=== PATIENT | male | born 1965 | race African-American/Black ===

== ENCOUNTER 2018-03-18 14:48 | Emergency (ER) | payer MEDICARE, MEDICAID ==
[~2018-03-18 14:48] MED LIST: ISOVUE-370 76%-LOCM 1 ML ONE
[2018-03-18 15:17] LABS: #Eosinphils 0.4 thou/uL (0.0-0.7); #Lymphocytes 1.4 thou/uL (1.20-3.40); #Monocytes 0.7 thou/uL (0.11-0.59); #Neutrophils 4.3 thou/uL (1.40-6.50); %Basophils 0.5 % (0.0-1.0); %Eosinophils 5.2 % (0.0-10.0); %Lymphocytes 20.9 % (21.0-51.0); %Monocytes 10.4 % (0.0-10.0); Hemoglobin 12.3 g/dL (14.0-18.0); Mean Corpuscular Hemoglobin 27.2 pg (27.0-31.0); Mean Corpuscular Volume 77.9 fL (78.0-98.0); Mean Platelet Volume 6.7 fL (7.4-10.4); Platelet Count 397 thou/uL (130-400); RBC Distribution Width 12.9 % (11.5-14.5); Red Blood Cell (RBC) Count 4.51 mill/uL (4.70-6.10); White Blood Cell (WBC) Count 6.9 thou/uL (4.8-10.8)
--- NOTE | 2018-03-18 15:21 | RAD ---
SINGLE VIEW OF THE CHEST: COMPARISON: 05/15/2016. HISTORY: Chest pain. Decreased appetite for 2 days. FINDINGS: Two views of the chest show a normal-sized cardiomediastinal silhouette. There is a subtle opacity p rojecting over the right lower lobe which likely represents an infiltrate. No pleural effusion is se en. IMPRESSION: Right lower lobe pneumonia. POS: [facility]
[2018-03-18 15:37] LABS: ALT (SGPT) 43 U/L (8-55); AST (SGOT) 24 U/L (5-34); Albumin 3.6 g/dL (3.5-5.0); Alkaline Phosphatase 131 U/L (40-150); Anion Gap 15 mmol/L (10-20); BUN (Urea Nitrogen) 9 mg/dL (8.4-25.7); CK (CPK) 77 U/L (30-200); Calc. Creatinine Clearance 0 mL/min (70-130); Calcium 9.2 mg/dL (7.8-10.44); Carbon Dioxide 22 mmol/L (22-29); Chloride 102 mmol/L (98-107); Estimated GFR-MDRD 75; Globulin 3.6 g/dL (2.4-3.5); Glucose 107 mg/dL (70-105); Lipase 11 U/L (8-78); Potassium 3.6 mmol/L (3.5-5.1); Protein, Total 7.2 g/dL (6.0-8.3); Sodium 135 mmol/L (136-145)
[2018-03-18] MEDS ORDERED: cefTRIAXone\\ROCEPHIN 1 GM VIAL ONE (15:42)
[2018-03-18 16:39] LABS: Acetaminophen Less than 6.0 mcg/mL (10.0-30.0); Alcohol Less than 10 mg/dL (Less than 10); Salicylate Less than 8.0 mg/dL (15.0-30.0)
--- NOTE | 2018-03-18 18:06 | CT ---
CT ANGIOGRAM CHEST WITH CONTRAST: History: Chest pain. Comparison: Radiograph same day. FINDINGS: CT angiogram chest performed after the intravenous administration of contrast. 3D rendering provided. There is extensive mediastinal adenopathy. Largest right paratracheal lymph node measures 3.5 cm in short axis. Large subcarinal lymph node measures 2.5 cm, axial image 49. The right paratracheal lymph node on axial image 32. The largest AP window lymph node measures 1.9 cm in short axis. Extensive bilateral hilar adenopathy. Upper abdomen is unremarkable. There is extrinsic mass effect along the right main pulmonary artery as well as right middle lobe and lower lobe pulmonary arteries due to the adenopathy. There is also attenuation of the left lower lob e pulmonary artery due to extensive confluent adenopathy. No proximal segmental pulmonary arterial fi lling defect. No axillary adenopathy is appreciated. No supraclavicular adenopathy. Mild atelectatic changes in the right lung base. Mild atelectasis in the right middle lobe. No conflu ent pneumonia is appreciated. Left lung is relatively clear. No displaced rib fracture. The sternum and manubrium are intact. No thoracic spine compression fractu re. IMPRESSION: 1. No evidence for pneumonia. 2. No pulmonary embolism. 3. Extensive confluent mediastinal adenopathy. This is greater than would be expected for reactive ad enopathy. No lung mass. Differential includes leukemia/lymphoma, sarcoidosis and metastatic disease. A transtracheal biopsy would be most beneficial in this case. Pulmonary consultation is recommended. Work up recommended. Code T POS: [facility]
== END 2018-03-18 17:08 | disposition home or self-care (01) ==
LOC: ERS 14:48
DX: R91.8 Other nonspecific abnormal finding of lung field (principal); F32.9 Major depressive disorder, single episode, unspecified; G43.909 Migraine, unspecified, not intractable, without status migrainosus; E78.5 Hyperlipidemia, unspecified; I10 Essential (primary) hypertension; Z87.442 Personal history of urinary calculi; Z79.899 Other long term (current) drug therapy; Z79.891 Long term (current) use of opiate analgesic
CPT/HCPCS: 36415; 71045; 71275; 80053; 80307; 82550; 83690; 83880; 84484; 85025; 85379; 87040; 87804; 93005; 96365; J0696; J7620; Q9966

== ENCOUNTER → 2018-04-02 | Day surgery (SDC) | payer MEDICARE, MEDICAID ==
[2018-03-28 14:59] VITALS: BMI 36.5
[~2018-04-02] MED LIST changes: -ISOVUE-370 76%-LOCM 1 ML ONE; +Lidocaine 4% PF 5 ML AMP NEB SCH
== END ==
LOC: SDC 10:13
PROVIDERS: ATTEND Internal Medicine
DX: R59.0 Localized enlarged lymph nodes (principal); Z53.09 Procedure and treatment not carried out because of other contraindication; I10 Essential (primary) hypertension; E78.5 Hyperlipidemia, unspecified; F32.9 Major depressive disorder, single episode, unspecified; Z91.011 Allergy to milk products
CPT/HCPCS: J2001; J7620

== ENCOUNTER 2018-04-06 06:52 | Day surgery (SDC) | payer MEDICARE, MEDICAID ==
[2018-04-05 11:22] VITALS: BMI 27.7
[2018-04-06] MEDS ORDERED: Fentanyl 100 MCG/2 ML VIAL ONE (09:33)
[2018-04-06] MEDS ORDERED: Succinylcholine Chloride 20 MG/ML 10 ml SYRINGE FS ONE (13:39)
[2018-04-06] MEDS ORDERED: PROPOFOL 200 MG/20 ML VIAL ONE (13:39)
[2018-04-06] MEDS ORDERED: Ondansetron PF 4 MG/2 ML Vial ONE (13:39)
[2018-04-06] MEDS ORDERED: PHENYLEPHRINE-NS 100 MCG/ML 10 ML SYRINGE ONE (13:39)
[2018-04-06] MEDS ORDERED: Rocuronium Bromide 10 MG/ML (10ML VIAL) ONE (13:39)
[2018-04-06] MEDS ORDERED: Glycopyrrolate 0.2 MG/ML 5 ML SYRINGE ONE (13:39)
[2018-04-06] MEDS ORDERED: Lidocaine 1% PF 5 ML VIAL ONE (13:39)
--- NOTE | 2018-04-06 17:50 | OP ---
DATE OF PROCEDURE: 04/06/2018 SERVICE: Pulmonary Medicine. PROCEDURES PERFORMED: Fiberoptic bronchoscopy with: 1. Visual airway inspection. 2. Endoscopic bronchial ultrasound-guided transbronchial needle aspiration of station R3, 7. 3. Transbronchial biopsy from the right upper lobe. 4. Endobronchial biopsy of the pennie. PREPROCEDURE DIAGNOSIS: Mediastinal lymphadenopathy. POSTPROCEDURE DIAGNOSES: 1. Mediastinal lymphadenopathy. 2. Diffuse mucosal irregularities of all visualized bronchi. MEDICATIONS USED: For list of medications, please refer to Anesthesia documentation. PREANESTHESIA ASSESSMENT: H and P had been performed. The patient's medications and allergies were reviewed. Informed consent was obtained after discussing the rationale, benefits, and risks of the procedure with the patient. Alternative options for sample collection were discussed. DESCRIPTION OF PROCEDURE: The patient was positively identified using name and date of . The procedure was verified. After induction of anesthesia, a curvilinear EBUS Olympus bronchoscope was introduced through the endotracheal tube into the tracheobronchial tree. Limited evaluation was performed. The bronchoscope was withdrawn into the trachea and a sweetie survey was performed. The endoscopic bronchial ultrasound, transbronchial needle aspirations of station 7, and R3 was conducted. There was no significant post biopsy bleeding. The bronchoscope was then exchanged for a diagnostic fiberoptic bronchoscope. It was advanced into the trachea, where a tracheobronchial tree inspection was carried out with clear identification of the right upper lobe, right middle lobe, right lower lobe, left upper lobe, lingula, and left lower lobe. Anatomy was essentially normal. That being said, there was diffuse mucosal inflammatory changes/irritation with small white papules scattered throughout bilateral airways. This was absolutely diffuse and not focal in any way. Transbronchial biopsy was obtained from the right upper lobe, as the right lower lobe and right middle lobe could not be cannulated because of the severity of the inflammation. This mucosal irregularity also involved the trachea. As such, endobronchial biopsy of the pennie was performed. Hemostasis was verified and the bronchoscope was subsequently removed from the patient. FINDINGS: 1. Secretions were minimal to nonexistent. 2. Diffuse endobronchial disease was identified. 3. Pennie was inflamed and in no way sharp. 4. Rapid on-site pathology suggested there were findings consistent with granulomatous lymphadenitis. SPECIMENS OBTAINED: 1. FNA of station R3, 7 for cytology. 2. Transbronchial biopsy from right upper lobe, random. 3. Endobronchial biopsy of pennie. COMPLICATIONS: None. ESTIMATED BLOOD LOSS: Less than 5 mL. FLUOROSCOPY TIME: Less than 2 minutes. DISPOSITION: The patient will be discharged home once he meets criteria for discharge. He will return to clinic with Dr. Redmond as previously directed. Job ID: [id number]
== END 2018-04-06 13:00 | disposition home or self-care (01) ==
LOC: SDC 06:52
PROVIDERS: ATTEND Internal Medicine
PROC: 07D78ZX Extraction of Thorax Lymphatic, Via Natural or Artificial Opening Endoscopic, Diagnostic (ICD-10-PCS; principal; 2018-04-06)
PROC: 0BBC8ZX Excision of Right Upper Lung Lobe, Via Natural or Artificial Opening Endoscopic, Diagnostic (ICD-10-PCS; 2018-04-06)
DX: J84.10 Pulmonary fibrosis, unspecified (principal); I88.8 Other nonspecific lymphadenitis; F31.9 Bipolar disorder, unspecified; I10 Essential (primary) hypertension; K21.9 Gastro-esophageal reflux disease without esophagitis; E73.9 Lactose intolerance, unspecified; G43.909 Migraine, unspecified, not intractable, without status migrainosus; E78.5 Hyperlipidemia, unspecified; E55.9 Vitamin D deficiency, unspecified; Z79.82 Long term (current) use of aspirin; Z79.899 Other long term (current) drug therapy
CPT/HCPCS: 87116; 87206; 88172; 88173; 88177; 88305; 88312; 88313; J3010

== ENCOUNTER 2018-10-17 10:09 | Outpatient (CLI) | payer MEDICARE, MEDICAID | END 2018-10-17 10:10 | disposition home or self-care (01) | LOC: CP 10:09 | PROVIDERS: ATTEND Internal Medicine Critical Care Medicine | DX: D86.9 Sarcoidosis, unspecified (principal) | CPT/HCPCS: 94060; 94727; 94729 ==

== ENCOUNTER 2019-11-15 10:35 | Inpatient (IN) | payer MEDICARE, MEDICAID, OTHER ==
--- NOTE | 2019-11-15 10:59 | RAD ---
RADIOGRAPH CHEST 1 VIEW: DATE: 11/15/2019 HISTORY: 54-year-old male with dyspnea FINDINGS: There are no airspace densities, pulmonary edema, pneumothorax, or cardiomegaly. The lateral costophr enic angles are sharp. IMPRESSION: No acute cardiopulmonary findings.
[2019-11-15 11:13] LABS: #Eosinphils 0.2 thou/uL (0.0-0.7); #Lymphocytes 1.5 thou/uL (1.20-3.40); #Monocytes 0.5 thou/uL (0.11-0.59); #Neutrophils 4.1 thou/uL (1.40-6.50); %Basophils 0.3 % (0.0-1.0); %Eosinophils 3.4 % (0.0-10.0); %Lymphocytes 24.4 % (21.0-51.0); %Monocytes 7.4 % (0.0-10.0); %Neutrophils 64.4 % (42.0-75.0); Mean Corpuscular HGB CONC 34.4 g/dL (32.0-36.0); Mean Corpuscular Hemoglobin 28.3 pg (27.0-31.0); Mean Corpuscular Volume 82.3 fL (78.0-98.0); Mean Platelet Volume 8.6 fL (7.4-10.4); Platelet Count 242 thou/uL (130-400); RBC Distribution Width 13.7 % (11.5-14.5); Red Blood Cell (RBC) Count 5.31 mill/uL (4.70-6.10); White Blood Cell (WBC) Count 6.3 thou/uL (4.8-10.8)
[2019-11-15] MEDS ORDERED: Aspirin Chewable 81 MG TAB ONE (11:34)
[2019-11-15] MEDS ORDERED: Furosemide 40 MG/4 ML VIAL ONE (11:34)
[2019-11-15] MEDS ORDERED: Nitroglycerin 2% Ointment 1 INCH/1 GM Packet ONE (11:34)
[2019-11-15 11:38] LABS: ALT (SGPT) 10 U/L (8-55); AST (SGOT) 15 U/L (5-34); Alkaline Phosphatase 85 U/L (40-110); Anion Gap 9 mmol/L (10-20); BUN (Urea Nitrogen) 14 mg/dL (8.4-25.7); CK (CPK) 340 U/L (30-200); Calc. Creatinine Clearance 0 mL/min (70-130); Carbon Dioxide 30 mmol/L (22-29); Chloride 104 mmol/L (98-107); Estimated GFR-MDRD 61; Globulin 3.2 g/dL (2.4-3.5); Glucose 130 mg/dL (70-105); Lipase 7 U/L (8-78); Potassium 4.4 mmol/L (3.5-5.1); Protein, Total 7.2 g/dL (6.0-8.3); Sodium 139 mmol/L (136-145)
[2019-11-15 11:42] LABS: CKMB 2.3 ng/mL (0-6.6)
--- NOTE | 2019-11-15 12:16 | PDOC.HHP ---
Hospitalist HPI - History of Present Illness SOB History of Present Illness: PCP: Helena Vazquez (GEOLOGICAL TECHNICAL OFFICER) The patient is a 54-year-old male with a past medical history significant for enlarged heart, hypertension, hyperlipidemia, schizophrenia and depression that presents to the emergency department via EMS for the above complaint. The patient reports he was at his scheduled primary care visit this afternoon for medication refills, when he told his primary care provider that he has been experiencing increased shortness of breath for the past couple months. He was told to ambulate at the office and showed signs of dyspnea on exertion along with chest pain. There was a reported SBP 160s. Patient reports having increased shortness of breath, swelling to his lower extremities, described as "all my muscles get tight". He reports an approximate 28 pound weight gain in the past month and a half. Stating, I was 318 pounds and now I am 346 pounds. He denies any cough, orthopnea or PND. He does report chest pain with exertion, located left-sided chest, described as pressure, exacerbated with exertion and relieved by rest. He denies any lightheadedness or heart palpitations. He denies any recent illness or fever. He has no other complaints at this time. EMS was called. Upon arrival, his SBP was noted to be in the 190s, was stable HR, RR, SPO2. He was given Nitro-Bid, 3 sublingual nitro tabs and a DuoNeb. The patient was brought to the emergency room for further evaluation. ED Course: VITAL SIGNS MonNov 15, 2019 10:44 CAROL Holland Kyndall BP: 155/91, Pulse: 84, Resp: 22, Temp: 98.7 (Oral), O2 sat: 96 on (Room Air), Time: 11/15/2019 10:44. VITAL SIGNS MonNov 15, 2019 11:36 FRANCESCO Garcia Cory BP: 123/79, Pulse: 78, Resp: 22, Temp: 99.0 (Oral), Pain: 7, O2 sat: 95 on (Room Air), Time: 11/15/2019 11:36. Medication administration: Nitro-Bid transdermal 1 inch Topical Acknowledged 11:34 11/15/2019 furosemide injection 40 mg IV Push Given 11:52 11/15/2019 aspirin oral 324 mg Oral Given 11:47 11/15/2019 Hospitalist ROS - Review of Systems All other systems reviewed; all pertinent +/- noted in HPI/Subj - Medication Medications: hydrochlorothiazide MonNov 15, 2019 12:34 FRANCESCO Garcia Cory TABLET : Strength - 100 mg : ORAL Patient Dose: 1 tab(s) Oral once a day (in the morning).UNABLE TO VERIFY DOSE. simvastatin MonNov 15, 2019 12:34 FRANCESCO Garcia Cory TABLET : Strength - 10 mg : ORAL Patient Dose: 1 tab(s) Oral once a day (at bedtime).UNABLE TO VERIFY DOSE. traZODone MonNov 15, 2019 12:34 FRANCESCO Garcia Cory TABLET : Strength - 100 mg : ORAL Patient Dose: 1 tab(s) Oral once a day (at bedtime).UNABLE TO VERIFY DOSE. DULoxetine MonNov 15, 2019 12:34 FRANCESCO Garcia Cory CAPSULE,DELAYED RELEASE (ENTERIC COATED) : Strength - 20 mg : ORAL Patient Dose: 2 tab(s) Oral ONCE.UNABLE TO VERIFY DOSE. carvedilol MonNov 15, 2019 12:35 FRANCESCO Garcia Cory tablet : Strength - 3.125 mg : ORAL Patient Dose: 50 mg Oral 2 times a day. losartan MonNov 15, 2019 12:38 FRANCESCO Garcia Cory tablet : Strength - 50 mg : ORAL Patient Dose: 50 mg Oral once a day (in the morning). mirtazapine MonNov 15, 2019 12:39 FRANCESCO Garcia Cory tablet : Strength - 15 mg : ORAL Patient Dose: 15 mg Oral once a day (at bedtime). benztropine oral MonNov 15, 2019 12:42 FRANCESCO Garcia Cory tablet : Strength - 2 mg : ORAL Patient Dose: 2 mg Oral once a day. ARIPiprazole MonNov 15, 2019 12:43 FRANCESCO Garcia Cory tablet : Strength - 5 mg : ORAL Patient Dose: 5 mg Oral once a day (at bedtime). Allergies: lactose (Unconfirmed), No Known Drug Allergies Hospitalist History - Past Medical History Source: patient, RN notes reviewed Cardiac: reports: HTN, Hyperlipidemia, Other (Enlarged heart) Psych: reports: Depression, Schizophrenia - Past Surgical History Past Surgical History: reports: no pertinent history - Family History Family History: reports: hypertension - Social History Smoking Status: Never smoker Alcohol: reports: None Drugs: reports: none Living Situation: Alone Activity level: independent ambulation - Exam General Appearance: NAD, awake alert Eye: PERRL, anicteric sclera ENT: normocephalic atraumatic Neck: supple, symmetric, no JVD Heart: RRR, no murmur, no gallops, no rubs, normal peripheral pulses Respiratory: CTAB, no wheezes, no rales, no ronchi, normal chest expansion, no tachypnea Gastrointestinal: soft, non-tender, normal bowel sounds, no bruit, no guarding, no rigidity Extremities: no cyanosis, 2+ LE edema Skin: no rashes Neurological: no focal deficits Musculoskeletal: normal tone, normal strength Psychiatric: A&O x 3 Hospitalist Results - Labs Result Diagrams: 11/15/19 11:03 11/15/19 11:03 Lab results: WBC 6.3 thou/uL (4.8-10.8) 11/15/19 11:03 Hgb 15.0 g/dL (14.0-18.0) 11/15/19 11:03 Hct 43.7 % (42.0-52.0) 11/15/19 11:03 MCV 82.3 fL (78.0-98.0) 11/15/19 11:03 Plt Count 242 thou/uL (130-400) 11/15/19 11:03 Neutrophils % 64.4 % (42.0-75.0) 11/15/19 11:03 Sodium 139 mmol/L (136-145) 11/15/19 11:03 Potassium 4.4 mmol/L (3.5-5.1) 11/15/19 11:03 Chloride 104 mmol/L (98-107) 11/15/19 11:03 Carbon Dioxide 30 mmol/L (22-29) H 11/15/19 11:03 BUN 14 mg/dL (8.4-25.7) 11/15/19 11:03 Creatinine 1.46 mg/dL (0.7-1.3) H 11/15/19 11:03 Glucose 130 mg/dL (70-105) H 11/15/19 11:03 Calcium 9.0 mg/dL (7.8-10.44) 11/15/19 11:03 Total Bilirubin 1.0 mg/dL (0.2-1.2) 11/15/19 11:03 AST 15 U/L (5-34) 11/15/19 11:03 ALT 10 U/L (8-55) 11/15/19 11:03 Alkaline Phosphatase 85 U/L (40-110) 11/15/19 11:03 Creatine Kinase 340 U/L (30-200) H 11/15/19 11:03 CK-MB (CK-2) 2.3 ng/mL (0-6.6) 11/15/19 11:03 Troponin I Less than 0.010 ng/mL (< 0.028) 11/15/19 11:03 B-Natriuretic Peptide Less than 10.0 pg/mL (0-100) 11/15/19 11:03 Serum Total Protein 7.2 g/dL (6.0-8.3) 11/15/19 11:03 Albumin 4.0 g/dL (3.5-5.0) 11/15/19 11:03 Lipase 7 U/L (8-78) L 11/15/19 11:03 - EKG Interpretation EKG: Normal sinus rhythm pulse 82 MT 196 no STEMI. - Radiology Interpretation Chest x-ray Status: report reviewed by me Additional Comment: IMPRESSION: No acute cardiopulmonary findings. Hospitalist H&P A/P - Problem (1) New onset of congestive heart failure Code(s): I50.9 - HEART FAILURE, UNSPECIFIED Status: Acute (2) Chest pain Code(s): R07.9 - CHEST PAIN, UNSPECIFIED Status: Acute (3) Dyspnea on exertion Code(s): R06.00 - DYSPNEA, UNSPECIFIED Status: Acute (4) Hypertension Code(s): I10 - ESSENTIAL (PRIMARY) HYPERTENSION Status: Chronic (5) Cardiomegaly Code(s): I51.7 - CARDIOMEGALY Status: Chronic (6) Hyperlipidemia Code(s): E78.5 - HYPERLIPIDEMIA, UNSPECIFIED Status: Chronic (7) Schizophrenia Code(s): F20.9 - SCHIZOPHRENIA, UNSPECIFIED Status: Chronic (8) Depression Code(s): F32.9 - MAJOR DEPRESSIVE DISORDER, SINGLE EPISODE, UNSPECIFIED Sta tus: Chronic (9) Migraines Code(s): G43.909 - MIGRAINE, UNSP, NOT INTRACTABLE, WITHOUT STATUS MIGRAINOSUS Status: Chronic - Plan Plan: 54/M with PMH of enlarged heart, HTN, HLD schizophrenia presents for SANTOYO and chest pain. Reported wt gain, swelling to LEs, and chest pain on exertion x 1-2 months. Presented mildly hypertensive, NL HR, RR, SPO2, afebrile. EKG NSR, no ST elevation. CXR no acute process. Troponin negative, BNP less than 10, DD 0.29. WBCs 6.3 Symptoms improved with Nitropaste, Lasix, aspirin. #New onset CHF Suspected. Denies previously diagnosis. Continue Lasix IVPB IVP. Daily weight, CARI 1500 ml, low-sodium. Order echocardiogram. Consult cardiology and heart failure clinic. #Chest pain Heart score 4. Trend troponins, check TSH, FLP, mag, UA. Continue aspirin, Nitropaste, statin. #Dyspnea on exertion Likely related to problem #1 and 2. Improved upon examination after Lasix IV P. #Hypertension Presented hypertensive. Takes home beta-suzi, losartan and HCTZ. Restart home beta-suzi. Hold losartan HCTZ for now (creatinine 1.46, no baseline for comparison). Continue to monitor BP. #Cardiomegaly Reports seen Dr. Rodriguez an unknown environmental coordinator several years ago, was told he has an enlarged heart. #Hyperlipidemia Check FLP. Restart home dose of simvastatin. #Schizophrenia Denies SI/HI. Home dose Abilify and duloxetine and benztropine. We will restart home medications when reconciled by nursing. #Depression Denies SI/HI. We will restart home medications when reconciled by nursing. #Migraines Reports has not had episode in several years. Takes no medications.
[2019-11-15] MEDS ORDERED: Nitroglycerin 0.4 MG TAB (25 Tab Bottle) SL PRN (12:38)
[2019-11-15] MEDS ORDERED: Senokot S 8.6-50 MG TAB PO PRN (12:40)
[2019-11-15] MEDS ORDERED: Calcium Carbonate 500 MG ChewTAB PO PRN (12:40)
[2019-11-15] MEDS ORDERED: Ondansetron PF 4 MG/2 ML Vial IVP PRN (12:40)
[2019-11-15] MEDS ORDERED: Ondansetron ODT 4 MG TAB PO PRN (12:40)
[2019-11-15 15:47] LABS: Troponin I Less than 0.010 ng/mL (< 0.028)
[2019-11-15] MEDS: Furosemide 40 MG/4 ML VIAL SLOW IVP SCH (16:56)
[2019-11-15] MEDS: Nitroglycerin 2% Ointment 1 INCH/1 GM Packet TOP SCH ×2 (16:57→22:29)
[2019-11-15] MEDS ORDERED: FLU VACC QS2020-21(6MOS UP)/PF 60 MCG/0.5 ML SYRINGE IM ONE (17:45)
[2019-11-15 18:37] LABS: Troponin I 0.014 ng/mL (< 0.028)
[2019-11-15] MEDS: Heparin 5,000 UNITS/ML VIAL SC SCH (20:21)
[2019-11-15] MEDS: Acetaminophen 325 MG TAB PO PRN (20:23)
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
[2019-11-16 04:18] LABS: #Eosinphils 0.2 thou/uL (0.0-0.7); #Lymphocytes 1.2 thou/uL (1.20-3.40); #Monocytes 0.6 thou/uL (0.11-0.59); #Neutrophils 4.9 thou/uL (1.40-6.50); %Basophils 0.4 % (0.0-1.0); %Eosinophils 2.4 % (0.0-10.0); %Monocytes 9.2 % (0.0-10.0); Hemoglobin 14.9 g/dL (14.0-18.0); Mean Corpuscular HGB CONC 34.9 g/dL (32.0-36.0); Mean Corpuscular Hemoglobin 28.5 pg (27.0-31.0); Mean Corpuscular Volume 81.6 fL (78.0-98.0); Platelet Count 226 thou/uL (130-400); RBC Distribution Width 13.8 % (11.5-14.5); Red Blood Cell (RBC) Count 5.22 mill/uL (4.70-6.10); White Blood Cell (WBC) Count 6.8 thou/uL (4.8-10.8)
[2019-11-16 04:42] LABS: Anion Gap 14 mmol/L (10-20); BUN (Urea Nitrogen) 16 mg/dL (8.4-25.7); Calc. Creatinine Clearance 126 mL/min (70-130); Calcium 9.2 mg/dL (7.8-10.44); Carbon Dioxide 26 mmol/L (22-29); Cardiac Risk 3.1 (Less than 4.5); Chloride 103 mmol/L (98-107); Cholesterol 119 mg/dl (< 200 Desired); Estimated GFR-MDRD 62; Glucose 113 mg/dL (70-105); HDL Cholesterol 39 mg/dL (>60 Neg Risk); LDL Cholesterol, Calculated 56 mg/dL; Sodium 139 mmol/L (136-145); Triglycerides 119 mg/dL (Less than 150)
[2019-11-16] MEDS: Furosemide 40 MG/4 ML VIAL SLOW IVP SCH ×2 (06:20→15:00)
[2019-11-16] MEDS: Nitroglycerin 2% Ointment 1 INCH/1 GM Packet TOP SCH ×3 (06:20→21:34)
[2019-11-16] MEDS: Heparin 5,000 UNITS/ML VIAL SC SCH ×2 (08:48→20:26)
[2019-11-16] MEDS: Aspirin Chewable 81 MG TAB PO SCH (08:48)
[2019-11-16] MEDS ORDERED: Enoxaparin Sodium 40 MG/0.4 ML SYRINGE SC SCH (09:00)
[2019-11-16] MEDS ORDERED: PROVENTIL INHALER 6.7 G (200 INHALATIONS) INH PRN (09:13)
[2019-11-16] MEDS: Tamsulosin HCl 0.4 MG CAP PO SCH (10:15)
[2019-11-16] MEDS: Carvedilol 6.25 MG TAB PO SCH (10:15)
[2019-11-16] MEDS: Docusate 100 MG CAP PO SCH ×2 (10:15→20:25)
[2019-11-16] MEDS ORDERED: Citalopram 20 MG TAB PO SCH (10:15)
[2019-11-16] MEDS ORDERED: Mirtazapine 15 MG TAB PO SCH (10:15)
[2019-11-16] MEDS ORDERED: DULoxetine 60 MG CAP PO SCH ×2 (10:15)
--- NOTE | 2019-11-16 11:00 | PDOC.CPN ---
- Subjective Date: 11/16/19 Time: 10:59 Interval history: Patient with c/o lack of sleep, but otherwise stable. ECHO pending. - Review of Systems General: denies: fever/chills, weight/appetite/sleep changes, night sweats, fatigue Respiratory: denies: cough, congestion, shortness of breath, exercise intolerance Cardiovascular: reports: edema. denies: chest pain, palpitation, paroxysmal nocturnal dyspnea, orthopnea Gastrointestinal: denies: nausea, vomiting, diarrhea, constipation, abd pain, GI bleeding Musculoskeletal: reports: arthritis/arthralgias. denies: pain, tenderness, stiffness, swelling Neurological: denies: numbness, syncope, seizure, weakness - Objective Allergies/Adverse Reactions: Allergies Allergy/AdvReac Type Severity Reaction Status Date / Time lactose AdvReac Diarrhea Verified 11/15/19 15:09 Visit Medications: Current Medications Acetaminophen (Acetaminophen 325 Mg Tab) 650 mg PO Q4H PRN PRN Reason: Headache/Fever/Mild Pain (1-3) Last Admin: 11/15/19 20:23 Dose: 650 mg Documented by: Albuterol Sulfate (Proventil Inhaler 6.7 G (200 Inhalations)) 2 puff INH Q6H PRN PRN Reason: SOB &/or Wheezing Aripiprazole (Aripiprazole 10 Mg Tab) 5 mg PO QAM COUNT INCLUDES THE [facility] Aspirin (Aspirin Chewable 81 Mg Tab) 81 mg PO DAILY COUNT INCLUDES THE [facility] Last Admin: 11/16/19 08:48 Dose: 81 mg Documented by: Benztropine Mesylate (Benztropine 1 Mg Tab) 2 mg PO HS COUNT INCLUDES THE [facility] Calcium Carbonate (Calcium Carbonate 500 Mg Chewtab) 1,000 mg PO Q4H PRN PRN Reason: Heartburn or Indigestion Carvedilol (Carvedilol 6.25 Mg Tab) 6.25 mg PO QAM COUNT INCLUDES THE [facility] Last Admin: 11/16/19 10:15 Dose: 6.25 mg Documented by: Citalopram Hydrobromide (Citalopram 20 Mg Tab) 40 mg PO DAILY COUNT INCLUDES THE [facility] Citalopram Hydrobromide (Citalopram 20 Mg Tab) 40 mg PO NOW COUNT INCLUDES THE [facility] Stop: 11/16/19 13:00 Last Admin: 11/16/19 10:15 Dose: 40 mg Documented by: Docusate Sodium (Docusate 100 Mg Cap) 100 mg PO BID COUNT INCLUDES THE [facility] Last Admin: 10/10/20 10:15 Dose: 100 mg Documented by: Duloxetine HCl (Duloxetine 60 Mg Cap) 60 mg PO QAM COUNT INCLUDES THE [facility] Duloxetine HCl (Duloxetine 60 Mg Cap) 60 mg PO NOW COUNT INCLUDES THE [facility] Stop: 11/16/19 13:00 Last Admin: 11/16/19 10:15 Dose: 60 mg Documented by: Furosemide (Furosemide 40 Mg/4 Ml Vial) 40 mg SLOW IVP 0600,1400 COUNT INCLUDES THE [facility] Last Admin: 11/16/19 06:20 Dose: 40 mg Documented by: Heparin Sodium (Porcine) (Heparin 5,000 Units/Ml Vial) 5,000 units SC BID COUNT INCLUDES THE [facility] Last Admin: 11/16/19 08:48 Dose: 5,000 units Documented by: Lisinopril (Lisinopril 20 Mg Tab) 40 mg PO DAILY COUNT INCLUDES THE [facility] Mirtazapine (Mirtazapine 15 Mg Tab) 15 mg PO QAM COUNT INCLUDES THE [facility] Mirtazapine (Mirtazapine 15 Mg Tab) 15 mg PO NOW COUNT INCLUDES THE [facility] Stop: 11/16/19 13:00 Last Admin: 11/16/19 10:15 Dose: 15 mg Documented by: Nitroglycerin (Nitroglycerin 0.4 Mg Tab (25 Tab Bottle)) 0.4 mg SL Q5MIN PRN PRN Reason: Chest Pain Nitroglycerin (Nitroglycerin 2% Ointment 1 Inch/1 Gm Packet) 0.5 inch TOP Q8HR COUNT INCLUDES THE [facility] Last Admin: 11/16/19 06:20 Dose: 0.5 inch Documented by: Ondansetron HCl (Ondansetron Odt 4 Mg Tab) 4 mg PO Q6H PRN PRN Reason: Nausea/Vomiting Ondansetron HCl (Ondansetron Pf 4 Mg/2 Ml Vial) 4 mg IVP Q6H PRN PRN Reason: Nausea/Vomiting Senna/Docusate Sodium (Senokot S 8.6-50 Mg Tab) 2 tab PO BID PRN PRN Reason: Constipation Simvastatin (Simvastatin 10 Mg Tab) 10 mg PO [facility] Sodium Chloride (Flush - Normal Saline 10 Ml Syringe) 10 ml IVF PRN PRN PRN Reason: Saline Flush Last Admin: 11/16/19 06:21 Dose: 10 ml Documented by: Tamsulosin HCl (Tamsulosin Hcl 0.4 Mg Cap) 0.4 mg PO QAM COUNT INCLUDES THE [facility] Last Admin: 11/16/19 10:15 Dose: 0.4 mg Documented by: Trazodone HCl (Trazodone Hcl 50 Mg Tab) 100 mg PO [facility] Vital Signs & Weight: Vital Signs Temp Pulse Resp BP Pulse Ox 11/16/19 07:11 98.3 F 90 20 149/80 H 95 11/16/19 04:00 98.8 F 96 15 133/61 98 11/16/19 00:07 97 11/16/19 00:00 83 18 Weight 333 lb 1.6 oz - Physical Exam General: alert & oriented x3, appears well, no apparent distress Neck: supple neck Cardiac: regular rate and rhythm Lungs: no wheeze, rales, rhonchi Neuro: grossly intact Abdomen: distended Extremities: 1+ LE edema Skin: clear Musculoskeletal: no pain - Labs Result Diagrams: 11/16/19 03:47 11/16/19 03:47 Troponin/CKMB CK-MB (CK-2) 2.3 ng/mL (0-6.6) 11/15/19 11:03 Troponin I 0.014 ng/mL (< 0.028) 11/15/19 18:04 - Assessment/Plan Assessment/Plan: 1. Weight gain/edema 2. SOB 3. HTN 4. Schizophrenia 5. 2nd Degree AVB-Type II (while sleeping) Await ECHO results. Patient on IV lasix. Will continue. BP stable. May consider stress at some point given symptoms of SANTOYO at presentation. Pt. seen and eval. by me. I agree with the A/P by the PA. The echo indicates a normal EF. Chest clear. RRR. Will need stress testing. Possible cardiac cath. gjmays
[2019-11-16 15:24] LABS: SARS-CoV-2 MS2 Positive; SARS-CoV-2 N Gene Negative; SARS-CoV-2 S Gene Negative; SARS-CoV-2 by NAA Not Detected (NotDetected); SARS-CoV-2 orf1ab Negative
--- NOTE | 2019-11-16 18:14 | PDOC.HOSPP ---
- Subjective Subjective: Patient stated that his breathing has improved. Also update his sister on the phone. - Objective Vital Signs & Weight: Vital Signs (12 hours) Temp Pulse Pulse Pulse Resp BP BP 11/16/19 15:00 98.8 F 94 20 11/16/19 12:57 88 88 143/86 H 172/98 H 11/16/19 12:05 98.1 F 76 20 11/16/19 07:11 98.3 F 90 20 BP Pulse Ox Pulse Ox Pulse Ox 11/16/19 15:00 150/93 H 96 11/16/19 12:57 99 95 11/16/19 12:05 135/90 96 11/16/19 07:11 149/80 H 95 Weight Admit Weight 338 lb 11.2 oz Weight 333 lb 1.6 oz I&O: 11/15/19 11/16/19 11/17/19 06:59 06:59 06:59 Intake Total 494 Output Total 775 Balance -281 Result Diagrams: 11/16/19 03:47 11/16/19 03:47 Radiology Reviewed by me: Yes EKG Reviewed by me: Yes Hospitalist ROS - Medication Medications: Active Medications Generic Name Dose Route Start Last Admin Trade Name Freq PRN Reason Stop Dose Admin Acetaminophen 650 mg 11/15/19 12:40 11/15/19 20:23 Acetaminophen 325 Mg Tab PO 650 mg Q4H PRN Administration Headache/Fever/Mild Pain (1-3) Aspirin 81 mg 11/16/19 09:00 11/16/19 08:48 Aspirin Chewable 81 Mg Tab PO 81 mg DAILY JUDAH Administration Carvedilol 6.25 mg 11/16/19 09:00 11/16/19 10:15 Carvedilol 6.25 Mg Tab PO 6.25 mg QAM JUDAH Administration Docusate Sodium 100 mg 11/16/19 09:00 11/16/19 10:15 Docusate 100 Mg Cap PO 100 mg BID JUDAH Administration Furosemide 40 mg 11/15/19 14:00 11/16/19 15:00 Furosemide 40 Mg/4 Ml Vial SLOW IVP 40 mg 0600,1400 JUDAH Administration Heparin Sodium (Porcine) 5,000 units 11/15/19 21:00 11/16/19 08:48 Heparin 5,000 Units/Ml Vial SC 5,000 units BID JUDAH Administration Nitroglycerin 0.5 inch 11/15/19 14:00 11/16/19 15:00 Nitroglycerin 2% Ointment 1 Inch/1 Gm Packet TOP 0.5 inch Q8HR JUDAH Administration Sodium Chloride 10 ml 11/15/19 12:40 11/16/19 06:21 Flush - Normal Saline 10 Ml Syringe IVF 10 ml PRN PRN Administration Saline Flush Tamsulosin HCl 0.4 mg 11/16/19 09:00 11/16/19 10:15 Tamsulosin Hcl 0.4 Mg Cap PO 0.4 mg QAM JUDAH Administration - Exam General Appearance: NAD Eye: PERRL ENT: normocephalic atraumatic Neck: supple Heart: RRR Respiratory: rhonchi Gastrointestinal: soft, non-tender Extremities: no cyanosis Skin: normal turgor Neurological: cranial nerve grossly intact Musculoskeletal: normal tone Psychiatric: normal affect, normal behavior, A&O x 3 Hosp A/P - Plan 54 years old -[place] gentleman who has significant past medical history of hypertension, dyslipidemia, schizophrenia, who presented to the ED with worsening dyspnea, associated weight gain and lower extremity swelling intermittently for the past 1-2 months New diagnosis, acute on chronic diastolic heart failure - EF preserved. --Continue IV diuresis. Cardiology is following. Patient will likely need further ischemic work-up, possible heart cath Dyspnea - improved --secondary to above. cont IV diuresis. monitor renal function. Chest pain --Troponins negative x3, continue mgt as above Schizophrenia --Patient is on significant amounts of psychotropic medications at home Depression - stable --cont home mes Dyslipidemia --LDL controlled, cont Zocor
[2019-11-16] MEDS: Benztropine 1 MG TAB PO SCH (20:24)
[2019-11-16] MEDS: traZODone HCl 50 MG TAB PO SCH (20:25)
[2019-11-16] MEDS: Simvastatin 10 MG TAB PO SCH (21:34)
[2019-11-16] MEDS: Acetaminophen 325 MG TAB PO PRN (23:39)
[2019-11-17] MEDS ORDERED: Labetalol HCl 100 MG/20 ML VIAL SLOW IVP PRN (00:45)
[2019-11-17 04:09] LABS: #Eosinphils 0.2 thou/uL (0.0-0.7); #Lymphocytes 1.6 thou/uL (1.20-3.40); #Monocytes 0.8 thou/uL (0.11-0.59); #Neutrophils 5.4 thou/uL (1.40-6.50); %Basophils 0.1 % (0.0-1.0); %Lymphocytes 20.2 % (21.0-51.0); %Monocytes 9.6 % (0.0-10.0); Hemoglobin 14.8 g/dL (14.0-18.0); Mean Corpuscular HGB CONC 34.5 g/dL (32.0-36.0); Mean Corpuscular Hemoglobin 27.8 pg (27.0-31.0); Mean Corpuscular Volume 80.5 fL (78.0-98.0); Mean Platelet Volume 9.2 fL (7.4-10.4); Platelet Count 216 thou/uL (130-400); RBC Distribution Width 13.7 % (11.5-14.5); Red Blood Cell (RBC) Count 5.32 mill/uL (4.70-6.10); White Blood Cell (WBC) Count 8.1 thou/uL (4.8-10.8)
[2019-11-17 04:33] LABS: Anion Gap 14 mmol/L (10-20); BUN (Urea Nitrogen) 17 mg/dL (8.4-25.7); Calc. Creatinine Clearance 131 mL/min (70-130); Calcium 9.3 mg/dL (7.8-10.44); Carbon Dioxide 27 mmol/L (22-29); Chloride 101 mmol/L (98-107); Estimated GFR-MDRD 66; Glucose 124 mg/dL (70-105); Potassium 3.6 mmol/L (3.5-5.1); Sodium 138 mmol/L (136-145)
[2019-11-17] MEDS: Furosemide 40 MG/4 ML VIAL SLOW IVP SCH ×2 (06:00→14:35)
[2019-11-17] MEDS: Nitroglycerin 2% Ointment 1 INCH/1 GM Packet TOP SCH ×3 (06:38→23:53)
[2019-11-17] MEDS: Aripiprazole 10 MG TAB PO SCH (09:08)
[2019-11-17] MEDS: Aspirin Chewable 81 MG TAB PO SCH (09:10)
[2019-11-17] MEDS: Carvedilol 6.25 MG TAB PO SCH (09:11)
[2019-11-17] MEDS: Citalopram 20 MG TAB PO SCH (09:12)
[2019-11-17] MEDS: Heparin 5,000 UNITS/ML VIAL SC SCH ×2 (09:14→20:24)
[2019-11-17] MEDS: DULoxetine 60 MG CAP PO SCH (09:14)
[2019-11-17] MEDS: Lisinopril 20 MG TAB PO SCH (09:18)
[2019-11-17] MEDS: Tamsulosin HCl 0.4 MG CAP PO SCH (09:19)
[2019-11-17] MEDS: Mirtazapine 15 MG TAB PO SCH (09:19)
[2019-11-17] MEDS: Docusate 100 MG CAP PO SCH ×2 (09:54→20:25)
--- NOTE | 2019-11-17 11:04 | PDOC.CPN ---
- Subjective Date: 11/17/19 Time: 11:02 Interval history: patient has no overnight complaints, states that he slept better last night than the previous night. Denies CP, SOB, cough, dizziness, headache. HR remains in SR in 70's. BP remains elevated. - Review of Systems General: denies: fever/chills, weight/appetite/sleep changes, night sweats, fatigue Respiratory: denies: cough, congestion, shortness of breath, exercise intoler ance Cardiovascular: denies: chest pain, palpitation, edema, paroxysmal nocturnal dyspnea, orthopnea Gastrointestinal: denies: nausea, vomiting, diarrhea, constipation, abd pain, GI bleeding Musculoskeletal: denies: pain, tenderness, stiffness, swelling, arthritis/arthralgias Neurological: denies: numbness, syncope, seizure, weakness - Objective Allergies/Adverse Reactions: Allergies Allergy/AdvReac Type Severity Reaction Status Date / Time lactose AdvReac Diarrhea Verified 11/15/19 15:09 Visit Medications: Current Medications Acetaminophen (Acetaminophen 325 Mg Tab) 650 mg PO Q4H PRN PRN Reason: Headache/Fever/Mild Pain (1-3) Last Admin: 11/16/19 23:39 Dose: 650 mg Documented by: Albuterol Sulfate (Proventil Inhaler 6.7 G (200 Inhalations)) 2 puff INH Q6H PRN PRN Reason: SOB &/or Wheezing Aripiprazole (Aripiprazole 10 Mg Tab) 5 mg PO QAM [facility] Last Admin: 11/17/19 09:08 Dose: 5 mg Documented by: Aspirin (Aspirin Chewable 81 Mg Tab) 81 mg PO DAILY [facility] Last Admin: 11/17/19 09:10 Dose: 81 mg Documented by: Benztropine Mesylate (Benztropine 1 Mg Tab) 2 mg PO HS [facility] Last Admin: 11/16/19 20:24 Dose: 2 mg Documented by: Calcium Carbonate (Calcium Carbonate 500 Mg Chewtab) 1,000 mg PO Q4H PRN PRN Reason: Heartburn or Indigestion Carvedilol (Carvedilol 6.25 Mg Tab) 6.25 mg PO QAM [facility] Last Admin: 11/17/19 09:11 Dose: 6.25 mg Documented by: Citalopram Hydrobromide (Citalopram 20 Mg Tab) 40 mg PO DAILY [facility] Last Admin: 11/17/19 09:12 Dose: 40 mg Documented by: Docusate Sodium (Docusate 100 Mg Cap) 100 mg PO BID [facility] Last Admin: 11/17/19 09:54 Dose: Not Given Documented by: Duloxetine HCl (Duloxetine 60 Mg Cap) 60 mg PO QAM [facility] Last Admin: 11/17/19 09:14 Dose: 60 mg Documented by: Furosemide (Furosemide 40 Mg/4 Ml Vial) 40 mg SLOW IVP 0600,1400 [facility] Last Admin: 11/17/19 06:00 Dose: 40 mg Documented by: Heparin Sodium (Porcine) (Heparin 5,000 Units/Ml Vial) 5,000 units SC BID [facility] Last Admin: 11/17/19 09:14 Dose: 5,000 units Documented by: Labetalol HCl (Labetalol Hcl 100 Mg/20 Ml Vial) 20 mg SLOW IVP Q4H PRN PRN Reason: SBP > 180 and HR >/= 70 Last Admin: 11/17/19 01:44 Dose: 20 mg Documented by: Lisinopril (Lisinopril 20 Mg Tab) 40 mg PO DAILY [facility] Last Admin: 11/17/19 09:18 Dose: 40 mg Documented by: Mirtazapine ([facility]apine 15 Mg Tab) [facility] Last Admin: 11/17/19 09:19 Dose: 15 mg Documented by: Nitroglycerin (Nitroglycerin 0.4 Mg Tab (25 Tab Bottle)) 0.4 mg SL Q5MIN PRN PRN Reason: Chest Pain Nitroglycerin (Nitroglycerin 2% Ointment 1 Inch/1 Gm Packet) 0.5 inch TOP Q8HR [facility] Last Admin: 11/17/19 06:38 Dose: Not Given Documented by: Ondansetron HCl (Ondansetron Odt 4 Mg Tab) 4 mg PO Q6H PRN PRN Reason: Nausea/Vomiting Ondansetron HCl (Ondansetron Pf 4 Mg/2 Ml Vial) 4 mg IVP Q6H PRN PRN Reason: Nausea/Vomiting Senna/Docusate Sodium (Senokot S 8.6-50 Mg Tab) 2 tab PO BID PRN PRN Reason: Constipation Simvastatin (Simvastatin 10 Mg Tab) 10 mg PO HS [facility] Last Admin: 11/16/19 21:34 Dose: 10 mg Documented by: Sodium Chloride (Flush - Normal Saline 10 Ml Syringe) 10 ml IVF PRN PRN PRN Reason: Saline Flush Last Admin: 11/17/19 06:00 Dose: 10 ml Documented by: Tamsulosin HCl (Tamsulosin Hcl 0.4 Mg Cap) [facility] Last Admin: 11/17/19 09:19 Dose: 0.4 mg Documented by: Trazodone HCl (Trazodone Hcl 50 Mg Tab) 100 mg PO [facility] Last Admin: 11/16/19 20:25 Dose: 100 mg Documented by: Vital Signs & Weight: Vital Signs Temp Pulse Resp BP BP Pulse Ox 11/17/19 09:18 187/103 H 11/17/19 09:11 187/103 H 11/17/19 07:59 97.5 F L 83 14 152/102 H 96 11/17/19 07:53 95 11/17/19 03:17 164/120 H 11/17/19 03:15 98.5 F 84 20 179/104 H 95 11/17/19 01:44 90 187/103 H 11/17/19 00:57 96 11/16/19 23:41 98.8 F 90 20 162/103 H 97 Admit Weight 338 lb 11.2 oz Weight 327 lb 8 oz - Physical Exam General: alert & oriented x3, appears well, no apparent distress HEENT: mucus membranes moist Neck: supple neck Cardiac: regular rate and rhythm, no murmur Lungs: clear to auscultation, no wheeze, rales, rhonchi Neuro: cranial nerve 2-12 intact Abdomen: non-tender, distended Extremities: no cyanosis, no edema Skin: clear Musculoskeletal: normal range of motion - Labs Result Diagrams: 11/17/19 03:28 11/17/19 03:28 Troponin/CKMB CK-MB (CK-2) 2.3 ng/mL (0-6.6) 11/15/19 11:03 Troponin I 0.014 ng/mL (< 0.028) 11/15/19 18:04 - Assessment/Plan Assessment/Plan: 1. Weight gain/edema 2. SOB 3. HTN 4. Schizophrenia 5. 2nd Degree AVB-Type II (while sleeping) ECHO results show EF 60-65%, will re-start home Norvasc 10 mg PO daily for elevated BP. Will continue IV lasix. Will order stress test today. Pt. seen and eval. by me. I agree with the A/P by the PA. He will likely need a 2 day protocol stress test due to his body habitus. Chest clear. RRR, minimal edema. gjmays
[2019-11-17] MEDS ORDERED: Amlodipine 10 MG TAB PO SCH (11:15)
--- NOTE | 2019-11-17 14:39 | PDOC.HOSPP ---
- Subjective Subjective: feeling better, swelling improved - Objective Vital Signs & Weight: Vital Signs (12 hours) Temp Pulse Pulse Pulse Resp BP BP 11/17/19 14:32 98 F 89 18 11/17/19 12:15 83 76 179/112 H 11/17/19 12:00 97.7 F 80 18 11/17/19 09:18 187/103 H 11/17/19 09:11 187/103 H 11/17/19 07:59 97.5 F L 83 14 11/17/19 07:53 11/17/19 03:17 11/17/19 03:15 98.5 F 84 20 BP BP Pulse Ox Pulse Ox 11/17/19 14:32 134/92 H 98 11/17/19 12:15 167/100 H 97 11/17/19 12:00 165/102 H 97 11/17/19 09:18 11/17/19 09:11 11/17/19 07:59 152/102 H 96 11/17/19 07:53 95 11/17/19 03:17 164/120 H 11/17/19 03:15 179/104 H 95 Weight Admit Weight 338 lb 11.2 oz Weight 327 lb 8 oz I&O: 11/16/19 11/17/19 11/18/19 06:59 06:59 06:59 Intake Total 2414 Output Total 3475 Balance -1061 Result Diagrams: 11/17/19 03:28 11/17/19 03:28 Additional Labs: Accuchecks 11/17/19 03:10 POC Glucose 117 H Radiology Reviewed by me: Yes EKG Reviewed by me: Yes Hospitalist ROS - Medication Medications: Active Medications Generic Name Dose Route Start Last Admin Trade Name Freq PRN Reason Stop Dose Admin Acetaminophen 650 mg 11/15/19 12:40 11/16/19 23:39 Acetaminophen 325 Mg Tab PO 650 mg Q4H PRN Administration Headache/Fever/Mild Pain (1-3) Aripiprazole 5 mg 11/17/19 09:00 11/17/19 09:08 Aripiprazole 10 Mg Tab PO 5 mg QAM JUDAH Administration Aspirin 81 mg 11/16/19 09:00 11/17/19 09:10 Aspirin Chewable 81 Mg Tab PO 81 mg DAILY JUDAH Administration Benztropine Mesylate 2 mg 11/16/19 21:00 11/16/19 20:24 Benztropine 1 Mg Tab PO 2 mg HS JUDAH Administration Carvedilol 6.25 mg 11/16/19 09:00 11/17/19 09:11 Carvedilol 6.25 Mg Tab PO 6.25 mg QAM JUDAH Administration Citalopram Hydrobromide 40 mg 11/17/19 09:00 11/17/19 09:12 Citalopram 20 Mg Tab PO 40 mg DAILY JUDAH Administration Docusate Sodium 100 mg 11/16/19 09:00 11/17/19 09:54 Docusate 100 Mg Cap PO Not Given BID JUDAH Duloxetine HCl 60 mg 11/17/19 09:00 11/17/19 09:14 Duloxetine 60 Mg Cap PO 60 mg QAM JUDAH Administration Furosemide 40 mg 11/15/19 14:00 11/17/19 14:35 Furosemide 40 Mg/4 Ml Vial SLOW IVP 40 mg 0600,1400 JUDAH Administration Heparin Sodium (Porcine) 5,000 units 11/15/19 21:00 11/17/19 09:14 Heparin 5,000 Units/Ml Vial SC 5,000 units BID JUDAH Administration Labetalol HCl 20 mg 11/17/19 00:45 11/17/19 01:44 Labetalol Hcl 100 Mg/20 Ml Vial SLOW IVP 20 mg Q4H PRN Administration SBP > 180 and HR >/= 70 Lisinopril 40 mg 11/17/19 09:00 11/17/19 09:18 Lisinopril 20 Mg Tab PO 40 mg DAILY JUDAH Administration Mirtazapine 15 mg 11/17/19 09:00 11/17/19 09:19 Mirtazapine 15 Mg Tab PO 15 mg QAM JUDAH Administration Nitroglycerin 0.5 inch 11/15/19 14:00 11/17/19 14:35 Nitroglycerin 2% Ointment 1 Inch/1 Gm Packet TOP 0.5 inch Q8HR JUDAH Administration Simvastatin 10 mg 11/16/19 21:00 11/16/19 21:34 Simvastatin 10 Mg Tab PO 10 mg HS JUDAH Administration Sodium Chloride 10 ml 11/15/19 12:40 11/17/19 06:00 Flush - Normal Saline 10 Ml Syringe IVF 10 ml PRN PRN Administration Saline Flush Tamsulosin HCl 0.4 mg 11/16/19 09:00 11/17/19 09:19 Tamsulosin Hcl 0.4 Mg Cap PO 0.4 mg QAM JUDAH Administration Trazodone HCl 100 mg 11/16/19 21:00 11/16/19 20:25 Trazodone Hcl 50 Mg Tab PO 100 mg HS JUDAH Administration - Exam General Appearance: NAD Eye: PERRL ENT: normocephalic atraumatic Neck: supple Heart: RRR Respiratory: CTAB Gastrointestinal: soft Extremities: no cyanosis, 2+ LE edema Skin: normal turgor Neurological: cranial nerve grossly intact Musculoskeletal: normal tone Psychiatric: normal affect, normal behavior, A&O x 3 Hosp A/P - Plan 54 years old -[place] gentleman who has significant past medical history of hypertension, dyslipidemia, schizophrenia, who presented to the ED with worsening dyspnea, associated weight gain and lower extremity swelling intermittently for the past 1-2 months Dyspnea - improved --His Echo was unremarkable. EF 50-60%, no evidence of chronic heart failure. Probably due fluid retention --Follow stress test. Appreciate cardiology input Chest pain --Troponins negative x3, follow NM stress test Schizophrenia --Patient is on significant amounts of psychotropic medications at home Depression - stable --cont home mes Dyslipidemia --LDL controlled, cont Zocor HTN - uncontrolled --cont Lisinopril, Incr Coreg, Norvasc resumed by cardiology
[2019-11-17] MEDS: Acetaminophen 325 MG TAB PO PRN (20:24)
[2019-11-17] MEDS: Benztropine 1 MG TAB PO SCH (20:25)
[2019-11-17] MEDS: Simvastatin 10 MG TAB PO SCH (20:25)
[2019-11-17] MEDS: traZODone HCl 50 MG TAB PO SCH (20:25)
[2019-11-18 04:29] LABS: #Eosinphils 0.3 thou/uL (0.0-0.7); #Lymphocytes 1.3 thou/uL (1.20-3.40); #Monocytes 0.5 thou/uL (0.11-0.59); #Neutrophils 3.5 thou/uL (1.40-6.50); %Basophils 0.5 % (0.0-1.0); %Eosinophils 5.4 % (0.0-10.0); %Lymphocytes 22.7 % (21.0-51.0); %Monocytes 9.5 % (0.0-10.0); %Neutrophils 62.1 % (42.0-75.0); Hemoglobin 15.4 g/dL (14.0-18.0); Mean Corpuscular HGB CONC 34.8 g/dL (32.0-36.0); Mean Corpuscular Volume 80.5 fL (78.0-98.0); Mean Platelet Volume 9.1 fL (7.4-10.4); Platelet Count 225 thou/uL (130-400); RBC Distribution Width 13.7 % (11.5-14.5); White Blood Cell (WBC) Count 5.6 thou/uL (4.8-10.8)
[2019-11-18 04:58] LABS: Anion Gap 15 mmol/L (10-20); BUN (Urea Nitrogen) 17 mg/dL (8.4-25.7); Calc. Creatinine Clearance 135 mL/min (70-130); Calcium 9.2 mg/dL (7.8-10.44); Carbon Dioxide 27 mmol/L (22-29); Chloride 101 mmol/L (98-107); Estimated GFR-MDRD 69; Glucose 111 mg/dL (70-105); Potassium 3.6 mmol/L (3.5-5.1); Sodium 139 mmol/L (136-145)
[2019-11-18] MEDS: Nitroglycerin 2% Ointment 1 INCH/1 GM Packet TOP SCH ×3 (05:10→22:42)
[2019-11-18] MEDS: Furosemide 40 MG/4 ML VIAL SLOW IVP SCH ×2 (05:28→13:10)
[2019-11-18] MEDS ORDERED: Regadenoson 0.4 MG/5 ML SYRINGE ONE (08:54)
[2019-11-18] MEDS: Heparin 5,000 UNITS/ML VIAL SC SCH ×2 (10:51→20:41)
[2019-11-18] MEDS: Lisinopril 20 MG TAB PO SCH (10:51)
[2019-11-18] MEDS: Aripiprazole 10 MG TAB PO SCH (10:52)
[2019-11-18] MEDS: DULoxetine 60 MG CAP PO SCH (10:52)
[2019-11-18] MEDS: Tamsulosin HCl 0.4 MG CAP PO SCH (10:52)
[2019-11-18] MEDS: Aspirin Chewable 81 MG TAB PO SCH (10:52)
[2019-11-18] MEDS: Carvedilol 6.25 MG TAB PO SCH (10:53)
[2019-11-18] MEDS: Amlodipine 10 MG TAB PO SCH (10:53)
[2019-11-18] MEDS: Citalopram 20 MG TAB PO SCH (10:53)
[2019-11-18] MEDS: Mirtazapine 15 MG TAB PO SCH (10:53)
[2019-11-18] MEDS: Docusate 100 MG CAP PO SCH ×2 (10:53→20:42)
--- NOTE | 2019-11-18 11:00 | NM ---
EXAM: CARDIAC SPECT HISTORY: Chest pain, dyspnea on exertion, hypertension, CHF TECHNIQUE: A myocardial perfusion scan was performed using the single isotope 2 day day protocol with technetium 99m sestamibi. [27 mCi] was injected intravenously for the rest exam followed by 30 mCi for the stress study. Pharmacologic stress with Lexiscan was monitored and interpreted by nurse practitioner Ericka Ying FINDINGS: Homogeneous tracer distribution is seen in the myocardial segments on stress and rest image s without fixed or reversible defects. Gated SPECT LVEF: 67% Wall motion exam: Normal IMPRESSION: Normal myocardial perfusion scan
--- NOTE | 2019-11-18 14:40 | PDOC.HOSPP ---
- Subjective Subjective: Patient was seen examined at bedside. Patient completed today stress test, negative for reversible ischemia. His blood pressure slightly elevated, however his beta-suzi was held this morning due to stress test. Patient reported that his lower extremity edema has improved. - Objective Vital Signs & Weight: Vital Signs (12 hours) Temp Pulse Resp BP BP Pulse Ox 11/18/19 12:00 98.1 F 91 17 157/96 H 96 11/18/19 07:45 98.8 F 94 16 160/107 H 95 11/18/19 04:00 98.9 F 87 19 144/88 H 92 L Weight Admit Weight 338 lb 11.2 oz Weight 322 lb 6.4 oz I&O: 11/17/19 11/18/19 11/19/19 06:59 06:59 06:59 Intake Total 2667 730 Output Total 7478 2990 Balance -9137 -6983 Result Diagrams: 11/18/19 04:03 11/18/19 04:03 Hospitalist ROS - Medication Medications: Active Medications Generic Name Dose Route Start Last Admin Trade Name Freq PRN Reason Stop Dose Admin Acetaminophen 650 mg 11/15/19 12:40 11/17/19 20:24 Acetaminophen 325 Mg Tab PO 650 mg Q4H PRN Administration Headache/Fever/Mild Pain (1-3) Amlodipine Besylate 10 mg 11/18/19 09:00 11/18/19 10:53 Amlodipine 10 Mg Tab PO 10 mg DAILY JUDAH Administration Aripiprazole 5 mg 11/17/19 09:00 11/18/19 10:52 Aripiprazole 10 Mg Tab PO 5 mg QAM JUDAH Administration Aspirin 81 mg 11/16/19 09:00 11/18/19 10:52 Aspirin Chewable 81 Mg Tab PO 81 mg DAILY JUDAH Administration Benztropine Mesylate 2 mg 11/16/19 21:00 11/17/19 20:25 Benztropine 1 Mg Tab PO 2 mg HS JUDAH Administration Carvedilol 12.5 mg 11/18/19 09:00 11/18/19 10:53 Carvedilol 6.25 Mg Tab PO 12.5 mg QAM JUDAH Administration Citalopram Hydrobromide 40 mg 11/17/19 09:00 11/18/19 10:53 Citalopram 20 Mg Tab PO 40 mg DAILY JUDAH Administration Docusate Sodium 100 mg 11/16/19 09:00 11/18/19 10:53 Docusate 100 Mg Cap PO 100 mg BID JUDAH Administration Duloxetine HCl 60 mg 11/17/19 09:00 11/18/19 10:52 Duloxetine 60 Mg Cap PO 60 mg QAM JUDAH Administration Furosemide 40 mg 11/15/19 14:00 11/18/19 13:10 Furosemide 40 Mg/4 Ml Vial SLOW IVP 40 mg 0600,1400 JUDAH Administration Heparin Sodium (Porcine) 5,000 units 11/15/19 21:00 11/18/19 10:51 Heparin 5,000 Units/Ml Vial SC 5,000 units BID JUDAH Administration Labetalol HCl 20 mg 11/17/19 00:45 11/17/19 01:44 Labetalol Hcl 100 Mg/20 Ml Vial SLOW IVP 20 mg Q4H PRN Administration SBP > 180 and HR >/= 70 Lisinopril 40 mg 11/17/19 09:00 11/18/19 10:51 Lisinopril 20 Mg Tab PO 40 mg DAILY JUDAH Administration Mirtazapine 15 mg 11/17/19 09:00 11/18/19 10:53 Mirtazapine 15 Mg Tab PO 15 mg QAM JUDAH Administration Nitroglycerin 0.5 inch 11/15/19 14:00 11/18/19 13:10 Nitroglycerin 2% Ointment 1 Inch/1 Gm Packet TOP 0.5 inch Q8HR JUDAH Administration Simvastatin 10 mg 11/16/19 21:00 11/17/19 20:25 Simvastatin 10 Mg Tab PO 10 mg HS JUDAH Administration Sodium Chloride 10 ml 11/15/19 12:40 11/17/19 06:00 Flush - Normal Saline 10 Ml Syringe IVF 10 ml PRN PRN Administration Saline Flush Tamsulosin HCl 0.4 mg 11/16/19 09:00 11/18/19 10:52 Tamsulosin Hcl 0.4 Mg Cap PO 0.4 mg QAM JUDAH Administration Trazodone HCl 100 mg 11/16/19 21:00 11/17/19 20:25 Trazodone Hcl 50 Mg Tab PO 100 mg HS JUDAH Administration - Exam General Appearance: NAD Eye: PERRL ENT: normocephalic atraumatic Neck: supple Heart: RRR Respiratory: CTAB Gastrointestinal: soft, non-tender Extremities: no cyanosis Skin: normal turgor Neurological: cranial nerve grossly intact Musculoskeletal: normal tone Hosp A/P - Plan 54 years old -Irish gentleman who has significant past medical history of hypertension, dyslipidemia, schizophrenia, who presented to the ED with worsening dyspnea, associated weight gain and lower extremity swelling intermittently for the past 1-2 months Dyspnea - improved --His Echo was unremarkable. EF 50-60%, no evidence of chronic heart failure. Probably due fluid retention --Stress test neg for reversible ischemia. --Home when OK with cardiology Chest pain --Troponins negative x3, stress test was neg HTN - uncontrolled --BP elevated. But he didn't get all his meds this morning d/t stress test. Schizophrenia --Patient is on significant amounts of psychotropic medications at home Depression - stable --cont home mes Dyslipidemia --LDL controlled, cont Zocor
[2019-11-18] MEDS: Simvastatin 10 MG TAB PO SCH (20:40)
[2019-11-18] MEDS: Benztropine 1 MG TAB PO SCH (20:41)
[2019-11-18] MEDS: traZODone HCl 50 MG TAB PO SCH (20:41)
[2019-11-19 04:39] LABS: Anion Gap 15 mmol/L (10-20); BUN (Urea Nitrogen) 18 mg/dL (8.4-25.7); Calc. Creatinine Clearance 126 mL/min (70-130); Calcium 9.4 mg/dL (7.8-10.44); Carbon Dioxide 28 mmol/L (22-29); Chloride 99 mmol/L (98-107); Estimated GFR-MDRD 65; Glucose 124 mg/dL (70-105); Potassium 3.5 mmol/L (3.5-5.1); Sodium 138 mmol/L (136-145)
[2019-11-19 05:25] LABS: Eosinophils 6 % (0-10); Hemoglobin 15.5 g/dL (14.0-18.0); Lymphocytes 25 % (21-51); MDiff Complete? YES; Mean Corpuscular HGB CONC 34.3 g/dL (32.0-36.0); Mean Corpuscular Hemoglobin 27.9 pg (27.0-31.0); Mean Corpuscular Volume 81.4 fL (78.0-98.0); Mean Platelet Volume 8.8 fL (7.4-10.4); Monocytes 10 % (0-10); Neutrophil 56 % (42-75); Platelet Count 255 thou/uL (130-400); RBC Distribution Width 13.7 % (11.5-14.5); Reactive Lymphocytes 3 % (0-10); Red Blood Cell (RBC) Count 5.57 mill/uL (4.70-6.10); White Blood Cell (WBC) Count 7.1 thou/uL (4.8-10.8)
[2019-11-19] MEDS: Furosemide 40 MG/4 ML VIAL SLOW IVP SCH (06:18)
[2019-11-19] MEDS: Nitroglycerin 2% Ointment 1 INCH/1 GM Packet TOP SCH (06:19)
[2019-11-19 06:40] VITALS: BMI 53.4
[2019-11-19] MEDS: Heparin 5,000 UNITS/ML VIAL SC SCH (08:44)
[2019-11-19] MEDS: Mirtazapine 15 MG TAB PO SCH (08:45)
[2019-11-19] MEDS: Aspirin Chewable 81 MG TAB PO SCH (08:45)
[2019-11-19] MEDS: Aripiprazole 10 MG TAB PO SCH (08:45)
[2019-11-19] MEDS: Carvedilol 6.25 MG TAB PO SCH (08:45)
[2019-11-19] MEDS: Amlodipine 10 MG TAB PO SCH (08:45)
[2019-11-19] MEDS: Lisinopril 20 MG TAB PO SCH (08:45)
[2019-11-19] MEDS: Tamsulosin HCl 0.4 MG CAP PO SCH (08:45)
[2019-11-19] MEDS: Docusate 100 MG CAP PO SCH (08:45)
[2019-11-19] MEDS: DULoxetine 60 MG CAP PO SCH (08:46)
[2019-11-19] MEDS: Citalopram 20 MG TAB PO SCH (08:57)
--- NOTE | 2019-11-19 11:53 | DIS ---
DATE OF ADMISSION: 11/15/2019 DATE OF DISCHARGE: 11/19/2019 DISCHARGE DIAGNOSES: 1. Dyspnea secondary to volume overload. 2. Chest pain, resolved. 3. Uncontrolled hypertension. 4. Schizophrenia. 5. Depression. 6. Dyslipidemia. 7. Probably undiagnosed obstructive sleep apnea. CONSULTATION: Cardiology, Dr. Saini. PROCEDURE: Nuclear stress test, negative for reversible ischemia. LABORATORY DATA AND IMAGING STUDY: WBC 7.1, hemoglobin 15.5, hematocrit 45.3, platelets 255. Chemistry; sodium 133, potassium 3.5, chloride 99, carbon dioxide 28, BUN 18, creatinine is 1.3. COVID PCR is negative. 2D echo showed normal EF at 60% to 65%, normal right ventricular size and function. HISTORY OF PRESENT ILLNESS AND BRIEF HOSPITAL COURSE: The patient is a pleasant 54-year-old gentleman, who has significant past medical history of hypertension, dyslipidemia, schizophrenia, depression, who presented to the ED with complaints of short of breath and chest discomfort. The patient was found volume overloaded with 3+ lower extremity edema. His D-dimer was negative. Chest x-ray was unremarkable. His BNP was normal. At any rate, given his symptomatology, he was subsequently admitted to Hospitalist Service for further IV diuresis. Cardiology was consulted. We initially thought that his volume overload was due to heart failure. However, his 2D echo came back unremarkable. He also underwent a stress test after he became euvolemic, there was no evidence of reversible ischemia. His dyspnea was due to volume overload. No evidence of heart failure. We had maximum adjustment to get his blood pressure better controlled. We have discontinued his HCTZ, and decrease his Norvasc to 5 mg due to lower extremity edema. We also started him on carvedilol for rate control and his diuretic was transitioned to oral Lasix. He is feeling well. His edema resolved. I have discussed with Cardiology, Dr. Saini, she recommended sleep study as outpatient. This has been communicated with nursing staff and the patient. At this time, the patient is stable to discharge home. DISPOSITION: The patient is stable to discharge home. ACTIVITY: As tolerated. DIET: Low-sodium diet. FOLLOWUP CARE: The patient to follow up with his PCP in 1 to 2 weeks, to recheck his BMP and electrolytes to make sure these remain stable. He will also need outpatient sleep study to rule out underlying obstructive sleep apnea. PHYSICAL EXAMINATION: VITAL SIGNS: Temperature is 99, pulse 96, respiratory rate 17, he is saturating 94% on room air. GENERAL APPEARANCE: The patient appears to be comfortable. He is not in acute distress. HEENT: Normocephalic and atraumatic. Mucous membranes moist. NECK: Supple. No lymphadenopathy. No JVD. CARDIOVASCULAR: Regular rate and rhythm, S1 and S2 noted. No murmur. PULMONOLOGY: Clear to auscultation bilaterally. ABDOMEN: Soft, nontender, nondistended. Positive bowel sounds. MUSCULOSKELETAL: No joint pain or tenderness. Positive for trace lower extremity edema. NEUROLOGIC: Cranial nerves 2 through 12 are grossly intact. No focal weakness. PSYCHIATRIC: The patient is alert and oriented x3 with normal affect. DISCHARGE MEDICATIONS: The following medication had been discontinued, hydrochlorothiazide 25 mg daily; and also Norvasc, the dose has been reduced from 10 to 5 mg daily; and lisinopril, we have split the dose from 40 mg daily to 20 mg b.i.d. for better blood pressure control. The following medications were added to his regimen; 1. Carvedilol 25 mg b.i.d. 2. Lasix 20 mg p.o. daily. He will continue with his other home medications including; 1. Aspirin 81 mg daily. 2. Abilify 5 mg q.a.m. 3. Celexa 60 mg daily. 4. Cymbalta 60 mg q.a.m. 5. Colace 200 mg b.i.d. 6. Remeron 15 mg q.a.m. 7. Zocor 10 mg at bedtime. 8. Flomax 0.4 mg p.o. daily. 9. Trazodone 100 mg daily. We also recommended to follow up with his psychiatrist to further simplify his psychotropic medication as this gentleman is on significant amounts of medication or follow up with his PCP. Thank you for allowing to participate in this patient's care. Discharge time spent, 35 minutes. Job ID: [id number]
[2019-11-19 12:42] VITALS: BP 152/97; TEMP 98.6
--- NOTE | 2019-11-23 13:06 | EKG ---
Test Reason : Blood Pressure : / mmHG Vent. Rate : 082 BPM Atrial Rate : 082 BPM P-R Int : 196 ms QRS Dur : 078 ms QT Int : 398 ms P-R-T Axes : 029 -28 033 degrees QTc Int : 464 ms Normal sinus rhythm Possible Anterior infarct , age undetermined Abnormal ECG Confirmed by ALICIA OSPINA, CHAPIN ([id number]), content editor ROMEL BERNSTEIN ([id number]) on 11/23/2019 1:06:02 PM Referred By: Confirmed By:CHAPIN VARGAS MD
== END 2019-11-19 13:30 | disposition home or self-care (01) | DRG 641 ==
LOC: ERS 10:35 → 2NO 14:47
PROVIDERS: ADMIT Internal Medicine; ATTEND Internal Medicine
DX: E87.70 Fluid overload, unspecified (principal); Z68.43 Body mass index [BMI] 50.0-59.9, adult; F20.9 Schizophrenia, unspecified; F32.9 Major depressive disorder, single episode, unspecified; E78.5 Hyperlipidemia, unspecified; G47.33 Obstructive sleep apnea (adult) (pediatric); Z20.828 Contact with and (suspected) exposure to other viral communicable diseases; G43.909 Migraine, unspecified, not intractable, without status migrainosus; E66.01 Morbid (severe) obesity due to excess calories; I44.1 Atrioventricular block, second degree; I10 Essential (primary) hypertension; Z23 Encounter for immunization; Z79.899 Other long term (current) drug therapy
CPT/HCPCS: 36415; 36416; 71045; 78452; 80048; 80053; 80061; 82550; 82553; 83690; 83735; 83880; 84443; 84484; 85025; 85379; 87635; 90471; 90662; 93005; 93017; 93306; 93798; 94760; 96374; A9500; G0008; J1644; J1940; J2785; U0003

== ENCOUNTER 2020-05-25 08:11 | Outpatient (CLI) | payer MEDICARE, MEDICAID | END 2020-05-25 08:12 | disposition home or self-care (01) | LOC: BICRAD 08:11 | PROVIDERS: ATTEND Nurse Practitioner Family | DX: R06.02 Shortness of breath (principal); M54.2 Cervicalgia | CPT/HCPCS: 71046; 72040 ==

== ENCOUNTER 2020-10-26 21:02 | Emergency (ER) | payer MEDICARE, MEDICAID ==
[2020-10-26 21:45] LABS: #Eosinphils 0.2 thou/uL (0.0-0.7); #Lymphocytes 1.8 thou/uL (1.20-3.40); #Monocytes 0.7 thou/uL (0.11-0.59); #Neutrophils 8.3 thou/uL (1.40-6.50); %Basophils 0.4 % (0.0-1.0); %Eosinophils 1.8 % (0.0-10.0); %Lymphocytes 16.2 % (21.0-51.0); %Monocytes 6.1 % (0.0-10.0); %Neutrophils 75.5 % (42.0-75.0); Hemoglobin 14.2 g/dL (14.0-18.0); Mean Corpuscular HGB CONC 35.7 g/dL (32.0-36.0); Mean Corpuscular Hemoglobin 28.9 pg (27.0-31.0); Mean Platelet Volume 7.9 fL (7.4-10.4); Platelet Count 290 thou/uL (130-400); RBC Distribution Width 13.2 % (11.5-14.5)
[2020-10-26] MEDS ORDERED: Ondansetron PF 4 MG/2 ML Vial ONE (21:57)
[2020-10-26] MEDS ORDERED: Ketorolac Tromethamine 30 MG/ML VIAL ONE (21:57)
[2020-10-26 22:07] LABS: ALT (SGPT) 8 U/L (8-55); AST (SGOT) 11 U/L (5-34); Albumin 4.2 g/dL (3.5-5.0); Alkaline Phosphatase 103 U/L (40-110); Anion Gap 12 mmol/L (10-20); BUN (Urea Nitrogen) 13 mg/dL (8.4-25.7); Bilirubin, Total 0.9 mg/dL (0.2-1.2); Calc. Creatinine Clearance 0 mL/min (70-130); Calcium 9.4 mg/dL (7.8-10.44); Carbon Dioxide 27 mmol/L (22-29); Chloride 104 mmol/L (98-107); Globulin 3.2 g/dL (2.4-3.5); Glucose 108 mg/dL (70-105); Potassium 4.1 mmol/L (3.5-5.1); Protein, Total 7.4 g/dL (6.0-8.3); Sodium 139 mmol/L (136-145)
[2020-10-26 22:38] LABS: Bacteria/HPF None Seen HPF (None Seen); Bilirubin Negative (Negative); Blood, Urine Trace (Negative); Clarity Clear (Clear); Glucose, Urine (Dipstick) Normal (Negative); Ketone, Urine Negative (Negative); Leukocyte Negative Leu/uL (Negative); Nitrite Negative (Negative); Protein, Urine (Dipstick) 10 mg/dL (Neg-Trace); Specific Gravity, Urine 1.013 (1.002-1.036); Squamous Epithelial None Seen HPF (0-3); Urobilinogen Normal mg/dL (Less than 2); WBC/HPF 0-3 HPF (0-3); pH, Urine 7.5 (5.0-9.0)
== END 2020-10-26 23:08 | disposition home or self-care (01) ==
LOC: ERS 21:02
DX: N13.2 Hydronephrosis with renal and ureteral calculous obstruction (principal); I10 Essential (primary) hypertension; G43.909 Migraine, unspecified, not intractable, without status migrainosus; E78.5 Hyperlipidemia, unspecified; E78.00 Pure hypercholesterolemia, unspecified
CPT/HCPCS: 36415; 74176; 80053; 81003; 81015; 85025; 96374; 96375; J1885; J2405

== ENCOUNTER 2020-11-04 05:51 | Day surgery (SDC) | payer MEDICARE, OTHER ==
[2020-11-04] MEDS ORDERED: Levofloxacin 500 mg/D5W 100 ml Premix Bag ONE (09:04)
[2020-11-04] MEDS ORDERED: Iothalamate Meglumine 60% 50 ML VIAL FS ONE (10:39)
[2020-11-04] MEDS ORDERED: Fentanyl 100 MCG/2 ML VIAL ONE (10:46)
[2020-11-04] MEDS ORDERED: Glycopyrrolate 0.2 MG/ML 5 ML SYRINGE ONE (11:01)
[2020-11-04] MEDS ORDERED: Lidocaine 1% PF 5 ML VIAL ONE (11:01)
[2020-11-04] MEDS ORDERED: PROPOFOL 200 MG/20 ML VIAL ONE (11:01)
[2020-11-04] MEDS ORDERED: Ondansetron PF 4 MG/2 ML Vial ONE (11:01)
[2020-11-04] MEDS ORDERED: Rocuronium Bromide 10 MG/ML (10ML VIAL) ONE (11:01)
[2020-11-04] MEDS ORDERED: Dexamethasone 20 MG/5 ML VIAL ONE (11:01)
[2020-11-04] MEDS ORDERED: SUGAMMADEX SODIUM 200 MG/2 ML VIAL ONE (11:38)
[2020-11-04] MEDS ORDERED: Tamsulosin HCl 0.4 MG CAP ONE (13:08)
[2020-11-04] MEDS ORDERED: Phenazopyridine HCl 100 MG TAB ONE (13:08)
== END 2020-11-04 14:22 | disposition home or self-care (01) ==
LOC: ERS 05:51 → SDC 08:21
PROVIDERS: ATTEND Urology
PROC: 0TC68ZZ Extirpation of Matter from Right Ureter, Via Natural or Artificial Opening Endoscopic (ICD-10-PCS; principal; 2020-11-04)
PROC: 0T768DZ Dilation of Right Ureter with Intraluminal Device, Via Natural or Artificial Opening Endoscopic (ICD-10-PCS; 2020-11-04)
DX: N13.2 Hydronephrosis with renal and ureteral calculous obstruction (principal); N40.1 Benign prostatic hyperplasia with lower urinary tract symptoms; R35.0 Frequency of micturition; N13.8 Other obstructive and reflux uropathy; I11.9 Hypertensive heart disease without heart failure; K21.9 Gastro-esophageal reflux disease without esophagitis; G43.909 Migraine, unspecified, not intractable, without status migrainosus; N17.9 Acute kidney failure, unspecified; E66.01 Morbid (severe) obesity due to excess calories; Z68.43 Body mass index [BMI] 50.0-59.9, adult; Z79.899 Other long term (current) drug therapy; Z91.011 Allergy to milk products
CPT/HCPCS: 52356; 74018; 74420; 82365; 93005; Q9961; 88300; 93010; C2617; J1100; J1956; J2405; J2704; J3010

== ENCOUNTER 2021-03-22 14:30 | Outpatient (CLI) | payer MEDICARE, OTHER | END 2021-03-22 14:31 | disposition home or self-care (01) | LOC: BICULT 14:30 | PROVIDERS: ATTEND Urology | DX: N20.0 Calculus of kidney (principal) | CPT/HCPCS: 76770 ==

== ENCOUNTER 2021-03-26 22:20 | Emergency (ER) | payer MEDICARE, OTHER ==
[2021-03-26 23:41] LABS: #Eosinphils 0.2 thou/uL (0.0-0.7); #Lymphocytes 1.8 thou/uL (1.20-3.40); #Monocytes 0.6 thou/uL (0.11-0.59); %Basophils 0.2 % (0.0-1.0); %Eosinophils 1.9 % (0.0-10.0); %Monocytes 5.8 % (0.0-10.0); Hemoglobin 13.5 g/dL (14.0-18.0); Mean Corpuscular HGB CONC 34.5 g/dL (32.0-36.0); Mean Corpuscular Hemoglobin 28.5 pg (27.0-31.0); Mean Corpuscular Volume 82.7 fL (78.0-98.0); Platelet Count 260 thou/uL (130-400); Red Blood Cell (RBC) Count 4.73 mill/uL (4.70-6.10); White Blood Cell (WBC) Count 10.6 thou/uL (4.8-10.8)
[2021-03-27 00:02] LABS: ALT (SGPT) 7 U/L (8-55); AST (SGOT) 11 U/L (5-34); Albumin 4.3 g/dL (3.5-5.0); Alkaline Phosphatase 88 U/L (40-110); Anion Gap 16 mmol/L (10-20); BUN (Urea Nitrogen) 18 mg/dL (8.4-25.7); Bilirubin, Total 1.2 mg/dL (0.2-1.2); CK (CPK) 129 U/L (30-200); Calc. Creatinine Clearance 0 mL/min (70-130); Calcium 9.4 mg/dL (7.8-10.44); Carbon Dioxide 23 mmol/L (22-29); Chloride 103 mmol/L (98-107); Globulin 2.8 g/dL (2.4-3.5); Glucose 90 mg/dL (70-105); Potassium 3.9 mmol/L (3.5-5.1); Protein, Total 7.1 g/dL (6.0-8.3); Sodium 138 mmol/L (136-145)
== END 2021-03-27 00:39 | disposition home or self-care (01) ==
LOC: ERS 22:20
DX: M25.551 Pain in right hip (principal); I10 Essential (primary) hypertension; G43.909 Migraine, unspecified, not intractable, without status migrainosus; E78.5 Hyperlipidemia, unspecified; Z79.899 Other long term (current) drug therapy
CPT/HCPCS: 36415; 71045; 80053; 82550; 83880; 84484; 85025; 93005

== ENCOUNTER 2021-04-08 07:35 | Outpatient (CLI) | payer MEDICARE, OTHER | END 2021-04-08 07:36 | disposition home or self-care (01) | LOC: BICCT 07:35 | PROVIDERS: ATTEND Urology | DX: N20.0 Calculus of kidney (principal) | CPT/HCPCS: 74176 ==

== ENCOUNTER 2022-05-16 08:47 | Outpatient (CLI) | payer MEDICARE, OTHER | END 2022-05-16 08:48 | disposition home or self-care (01) | LOC: RAD 08:47 | PROVIDERS: ATTEND Urology | DX: N20.0 Calculus of kidney (principal) | CPT/HCPCS: 74018; 80048; 81001; G0103 ==

== ENCOUNTER 2024-01-10 08:25 | Outpatient (CLI) | payer OTHER | END 2024-01-10 08:26 | disposition home or self-care (01) | LOC: BICRAD 08:25 | PROVIDERS: ATTEND Nurse Practitioner Family | DX: M54.6 Pain in thoracic spine (principal); M47.817 Spondylosis without myelopathy or radiculopathy, lumbosacral region; M43.8X4 Other specified deforming dorsopathies, thoracic region | CPT/HCPCS: 72072; 72100 ==

== ENCOUNTER 2024-09-11 08:10 | Outpatient (CLI) | payer OTHER | END 2024-09-11 08:11 | disposition home or self-care (01) | LOC: BICRAD 08:10 | PROVIDERS: ATTEND Nurse Practitioner Family | DX: M25.561 Pain in right knee (principal); M17.11 Unilateral primary osteoarthritis, right knee ==